=== PATIENT | female | born 1965 | race Caucasian/White ===

== ENCOUNTER → 2016-09-22 | Outpatient (CLI) | payer BC ==
--- NOTE | ~2016-09-22 | NDGEN ---
PATIENT'S NAME: FELICIA HAINES [facility] AGE: 51 Y [address] ROOM: [place] [address] LOCATION: [facility], [place] ADMIT DATE: 09/22/2016 Neurodiagnostics DISCHARGE DATE: FAMILY PHYSICIAN: Faustina Estrada DO ATTENDING PHYSICIAN: Faustina Estrada DATE OF PROCEDURE: 09/22/2016 PROCEDURE: EMG nerve conduction study. The patient had this study done on 09/22/2016. INDICATION/DESCRIPTION: This study performed was nerve conduction study of the bilateral median and ulnar motor and sensory nerves as well as F-wave studies. Further more, a needle EMG was performed in the right upper extremity as the patient has pain that is focused into the right anterior triceps region. She has a bit of pain on the lateral abduction of the arm, but more focal pain that radiates either up to her neck or from her right neck to her right upper trapezius muscle. The patient has no weakness of the deltoid, the biceps, triceps, or any distal power weakness or any distal weakness into the forearm or of the hands. The median and ulnar motor onset latencies were all within normal limits as well as the amplitudes and nerve conduction velocities; all being normal with nerve conduction velocities well into the upper 50s to 60s range. The ulnar and median peak onset latencies were all within normal limits with normal amplitudes and normal nerve conduction velocities into the 40 to 50 m/sec range which is normal for the sensory nerves. F-wave studies of the bilateral upper extremities were also normal. Next, a needle was placed into the right deltoid, biceps, triceps, and abductor pollicis brevis muscle as well as into the right trapezius crest muscle. There was full recruitment of motor unit action potentials with normal sizes and durations of these motor units. There was no evidence of any abnormal fibrillation potentials or positive sharp waves that would be consistent with a focal radiculopathy or focal neuropathy. IMPRESSION: This is a normal nerve conduction study EMG of the bilateral upper extremities. There is no evidence to support a focal neuropathy nor is there evidence to support a cervical radiculopathy of the right upper extremity. PATIENT'S NAME: FELICIA HAINES [facility] AGE: 51 Y [address] ROOM: [place] [address] LOCATION: [facility], [place] ADMIT DATE: 09/22/2016 Neurodiagnostics DISCHARGE DATE: FAMILY PHYSICIAN: Faustina Estrada DO ATTENDING PHYSICIAN: Faustina Estrada Differential diagnosis may be a focal tendinitis to the deltoid insertion at the upper arm. Clinical correlation is advised. MD CATHY HERNANDEZ/aleksandar /[id number] dtt: 10/26/16 1522 , JOSEPH HALL dtd: 09/22/16 1701
== END | disposition disaster alternative care site (69) ==
LOC: GNEU 09-03 15:00
DX: M79.601 Pain in right arm (principal); R20.0 Anesthesia of skin; R20.2 Paresthesia of skin